=== PATIENT | female | born 1950 | race Caucasian/White ===

== ENCOUNTER 2021-01-30 16:08 | Emergency (ER) | payer MEDICARE, OTHER, SELFPAY ==
[2021-01-30 16:16] VITALS: BP 183/94; PULSE 86; RESP 20; TEMP 36.9; O2SAT 100; BMI 21.4
--- NOTE | 2021-01-30 16:19 | DI.RAD.S_ITS ---
PROCEDURE: XR WRIST RT MIN 3V INDICATIONS: +deformity/FOOSH TECHNIQUE: 4 views of the wrist were acquired. COMPARISON: None. FINDINGS: Bones: Four views of the right wrist show a comminuted distal radius fracture with articular surface involvement and dorsal angulation. A well corticated ossicle at the ulnar styloid is likely remote. The carpal bones are intact. There are degenerative changes of the triscaphe joint. Soft tissues: No suspicious soft tissue calcifications. IMPRESSION: Comminuted, intra-articular fracture of the distal radius with dorsal angulation. Dictated by: Taurus Pineda M.D. on 01/30/2021 at 17:09 Approved by: Taurus Pineda M.D. on 01/30/2021 at 17:11
--- NOTE | 2021-01-30 16:19 | DI.RAD.S_ITS ---
PROCEDURE: XR KNEE RT 3V INDICATIONS: fall TECHNIQUE: 3 views of the knee were acquired. COMPARISON: None. FINDINGS: Bones: No fracture or dislocation. Tricompartmental degenerative changes and medial joint space narrowing. Soft tissues: No joint effusion. No suspicious soft tissue calcifications. IMPRESSION: 1. No acute traumatic abnormality. 2. Tricompartmental degenerative changes consistent with osteoarthritis. Dictated by: Taurus Pineda M.D. on 01/30/2021 at 17:11 Approved by: Taurus Pineda M.D. on 01/30/2021 at 17:12
--- NOTE | 2021-01-30 16:19 | DI.RAD.S_ITS ---
PROCEDURE: XR KNEE LT 3V INDICATIONS: fall TECHNIQUE: 3 views of the knee were acquired. COMPARISON: None. FINDINGS: Bones: No fractures or dislocations. No suspicious bony lesions. Tricompartmental degenerative changes with medial joint space narrowing. Soft tissues: No joint effusion. No suspicious soft tissue calcifications. IMPRESSION: 1. No acute abnormality of the left knee. 2. Tricompartmental degenerative changes consistent with osteoarthritis. Dictated by: Taurus Pineda M.D. on 01/30/2021 at 17:13 Approved by: Taurus Pineda M.D. on 01/30/2021 at 17:13
--- NOTE | 2021-01-30 17:36 | ED.FALL ---
HPI - Fall General Chief Complaint: Fall Stated Complaint: Fall c wrist fx Time Seen by Provider: 01/30/21 16:43 Source: patient Mode of arrival: Ambulatory Limitations: no limitations History of Present Illness HPI Narrative: Patient is a 70-year-old female who presents with right wrist injury. She says she was working in the garden when she tripped and fell landing on her wrist. She denies any other injury she should has no numbness or tingling there is obvious deformity. complaint: fall Onset (ago): hour(s) Context: tripped/slipped Related Data Home Medications Medication Instructions Recorded Confirmed lisinopril 20 mg PO QDAY #0 11/12/17 Previous Rx's Medication Instructions Recorded hydrocodone-acetaminophen 1 tab PO Q6H PRN #10 tab 01/30/21 Allergies Allergy/AdvReac Type Severity Reaction Status Date / Time cephalexin [From KEFLEX] Allergy Intermediate RASH Unverified 12/04/17 12:51 Penicillins [PENICILLINS] Allergy Intermediate RASH Unverified 12/04/17 12:51 Sulfa (Sulfonamide Allergy Intermediate RASH Unverified 12/04/17 12:51 Antibiotics) [SULFA (SULFONAMIDE ANTIBIOTICS)] codeine [CODEINE] AdvReac Intermediate HALLUCINATI Unverified 12/04/17 12:51 ON Review of Systems Review of Systems Narrative: GENERAL: Denies chills,fever HEENT: Denies throat pain RESPIRATORY: Denies dyspnea, cough, wheezing CARDIOVASCULAR: Denies chest pain, palpitations GASTROINTESTINAL: Denies nausea, vomiting MUSCULOSKELETAL: See HPI SKIN: No rash, no laceration, no pruritus NEUROLOGIC: Denies weakness, dizziness, headache, numbness 8 point review of systems is negative except for those stated above and HPI Exam Initial Vital Signs Initial Vital Signs: Vital Signs Temperature 98.4 F 01/30/21 16:16 Pulse Rate 86 01/30/21 16:16 Respiratory Rate 20 01/30/21 16:16 Blood Pressure 183/94 H 01/30/21 16:16 Pulse Oximetry 100 01/30/21 16:16 GENERAL: Alert well-appearing 4-year-old female HEENT: Head atraumatic,EOMI, pupils reactive, face symmetric, [moist] mucous membranes CARDIOVASCULAR: Regular rate and rhythm without murmurs, rubs or gallops. RESPIRATORY: Breath sounds equal bilaterally, no wheezes rales or rhonchi. EXTREMITIES: Normal range of motion, no clubbing or edema. Neurovascularly intact Right wrist obvious deformity distal radial pulse intact able to move fingers sensation intact NEUROLOGICAL: Alert and oriented x4.Normal gait and speech. SKIN: Warm, dry, no laceration, no petechiae, no rashes or lesions. Procedures Nerve Block Nerve Block 1: Time out performed: Yes Local Anesthetic: lidocaine 1% and with epi Amount of anesthesia used (mL): 10 Nerve Blocks: hematoma block Procedure Successful: Yes Patient Tolerated Procedure: Well Complications: none Orthopedic Fracture Reduction Fracture #1: Time Out Performed: Yes Side: right Fracture Reduction Location: radius and ulna Analgesia: hematoma block Technique: direct manipulation Post Reduction X-rays Demonstrate: acceptable reduction Post-reduction neuro exam: intact Post-reduction vascular exam: intact Splint Applied: Yes Patient Tolerated Procedure: Well Orthopedic Splinting/Casting Injury #1: Side: right Upper Extremity Injury Location: forearm Upper Extremity Immobilizer: sugar tong splint Post splinting neuro exam: intact Post splinting vascular exam: intact Placed by: Nursing Course Orders Ordered: ED Orders 01/30/21 16:19 XR knee LT 3V Stat XR knee RT 3V Stat XR wrist RT min 3V Stat 01/30/21 18:38 XR wrist RT 2V Stat Discontinued Medications Hydrocodone Bitart/Acetaminophen (Hydrocodone/Acet 5/325 Tablet) 1 tab PO NOW ONE Stop: 01/30/21 17:14 Last Admin: 01/30/21 17:41 Dose: 1 tab Documented by: [email or web address] Lidocaine/Epinephrine (Lidocaine 1% W/Epi) 1 ml SUBCUT NOW ONE Stop: 01/30/21 17:14 Vital Signs Vital signs: Vital Signs - 8 hr 01/30/21 16:16 Temperature 98.4 F Pulse Rate 86 Respiratory Rate 20 Blood Pressure 183/94 H Pulse Oximetry 100 MDM - Fall Imaging Data Extremity x-ray #1: Radiologist's Impression: PROCEDURE: XR WRIST RT 2V INDICATIONS: reduction TECHNIQUE: 2 views of the wrist were acquired. COMPARISON: [facility], , XR WRIST RT MIN 3V, 01/30/2021, 16:35. FINDINGS: Bones: There is a distal radial metaphyseal fracture with improved alignment. Ulnar styloid fracture is noted.. No suspicious bony lesions. Bone details are obscured by the overlying passed gas. Soft tissues: No suspicious soft tissue calcifications. IMPRESSION: Improved alignment post closed reduction. Dictated by: Nava Doran M.D. on 01/30/2021 at 19:05 Extremity x-ray #2: Radiologist's Impression: PROCEDURE: XR WRIST RT MIN 3V INDICATIONS: +deformity/FOOSH TECHNIQUE: 4 views of the wrist were acquired. COMPARISON: None. FINDINGS: Bones: Four views of the right wrist show a comminuted distal radius fracture with articular surface involvement and dorsal angulation. A well corticated ossicle at the ulnar styloid is likely remote. The carpal bones are intact. There are degenerative changes of the triscaphe joint. Soft tissues: No suspicious soft tissue calcifications. IMPRESSION: Comminuted, intra-articular fracture of the distal radius with dorsal angulation. Dictated by: Taurus Pineda M.D. on 01/30/2021 at 17:09 Approved by: Taurus Pineda M.D. on 01/30/2021 at 17:11 Discharge Plan Departure Patient Disposition: Home Clinical Impression: Fracture of wrist Qualifiers: Encounter type: initial encounter Fracture type: closed Laterality: right Qualified Code(s): S62.101A - Fracture of unspecified carpal bone, right wrist, initial encounter for closed fracture Instructions: Wrist Fracture Activity Restrictions/Additional Instructions: *You have been diagnosed with right wrist fracture *What to do: Keep arm in splint at all times including while bathing. As you may need sling will active. You may ice 20-30 minutes at a time *Continue to take medications as directed [place] 1 tablet every 6 hours if needed for severe pain *Follow up with your primary care provider in 2-3 days Call orthopedics tomorrow to schedule follow-up appointment *Return to ER if you should have worsening numbness tingling increased pain inability to move finger or any new, worsening or concerning symptoms CONTROLLED SUBSTANCE DISCHARGE (Narcotoic/benzodiazepine/Flexeril/Phenergan) 1. You have been prescribed narcotic medications, it does have acetaminophen/Tylenol/paracetamol in it, DO NOT TAKE MORE THAN 4,00mg in 24 hours of Tylenol. TRAMADOL DOES NOT CONTAIN TYLENOL 2. Please understand that we cannot provide further refills of narcotics, benzodiazepines or controlled substances through the ED and her pain management will need to be through your provider. 3. While on these medications you cannot drive or operate heavy machinery. 4. You cannot sign legal documents or perform any duties such as this. 5. As long as you're taking opiate pain medications he should also be taking a stool softener such as Colace, Dulcolax, MiraLAX or prune juice, to help avoid constipation. Prescriptions: New hydrocodone-acetaminophen 5-325 mg tablet 1 tab PO Q6H PRN (Reason: pain) Qty: 10 RF: 0 No Action lisinopril 20 MG tablet 20 mg PO QDAY Qty: 0 RF: 0 Referrals: [facility] [Provider Group] Otilia Sow MD [Primary Care Provider] -
[2021-01-30] MEDS: HYDROCODONE/ACET 5/325 TABLET 1 TAB PO (17:41)
--- NOTE | 2021-01-30 18:38 | DI.RAD.S_ITS ---
PROCEDURE: XR WRIST RT 2V INDICATIONS: reduction TECHNIQUE: 2 views of the wrist were acquired. COMPARISON: [facility], CR, XR WRIST RT MIN 3V, 01/30/2021, 16:35. FINDINGS: Bones: There is a distal radial metaphyseal fracture with improved alignment. Ulnar styloid fracture is noted.. No suspicious bony lesions. Bone details are obscured by the overlying passed gas. Soft tissues: No suspicious soft tissue calcifications. IMPRESSION: Improved alignment post closed reduction. Dictated by: Nava Doran M.D. on 01/30/2021 at 19:05 Approved by: Nava Doran M.D. on 01/30/2021 at 19:06
[2021-01-30 19:49] VITALS: BP 136/72; PULSE 72; RESP 14; O2SAT 98
== END 2021-01-30 19:50 | disposition home or self-care (01) ==
PROVIDERS: Emergency Provider Emergency Medicine; Family Provider Family Medicine; PCP Family Medicine
DX: S62.101A Fracture of unspecified carpal bone, right wrist, initial encounter for closed fracture (principal); W19.XXXA Unspecified fall, initial encounter
CPT/HCPCS: 25605; 64450; 73100; 73110; 73562; 99283; 99284

== ENCOUNTER → 2023-11-05 10:16 | Outpatient (CLI) | payer MEDICARE, OTHER, SELFPAY ==
--- NOTE | 2023-11-05 10:20 | DI.RAD.S_ITS ---
PROCEDURE: XR ABDOMEN 1V INDICATIONS: RIGHT URETERAL STONE TECHNIQUE: One view of the abdomen acquired. COMPARISON: Outside Film, CT, CT ABDOMEN PELVIS WITH CONTRAST, 09/14/2023, 1:52. FINDINGS: Surgical changes and devices: Cholecystectomy clips. Two surgical clips in the right hemiabdomen. Bowel: Bowel gas pattern is nonobstructive. Large right lateral ventral wall fat and bowel containing hernia. Soft tissues: Calcific density projects over the right flank measuring 7 mm. Additional smaller calcific densities along the course the ureter measuring up to 4 mm. No suspicious abdominal calcifications. Visualized solid organ contours appear normal in size. Bones: No suspicious bony lesions. Degenerative changes of the spine. IMPRESSION: 1. Calcific density projects over the right flank measuring 7 mm which may represent a renal nephrolith. 2. Additional smaller calcific densities along the course of the right ureter measuring up to 4 mm. This is nonspecific and could represent a ureteral stone. Consider a CT KUB for further evaluation. 3. Large right lateral abdominal wall fat and bowel containing hernia. Dictated by: Garfield Kaminski M.D. on 11/05/2023 at 16:56 Approved by: Garfield Kaminski M.D. on 11/05/2023 at 17:00
== END ==
PROVIDERS: Family Provider Family Medicine; PCP Student in an Organized Health Care Education/Training Program; Referring Provider Physician Assistant Medical; Visit Provider Physician Assistant Medical
DX: N20.1 Calculus of ureter (principal); N21.0 Calculus in bladder; K43.9 Ventral hernia without obstruction or gangrene
CPT/HCPCS: 74018